=== PATIENT | male | born 1970 | race Two or more races ===

== ENCOUNTER 2020-06-29 09:15 | Outpatient (CLI) | payer OTHER | END 2020-06-29 09:20 | disposition home or self-care (01) | LOC: PPH VACUNA 09:15 | DX: Z23 Encounter for immunization (principal) ==

== ENCOUNTER 2021-02-14 08:00 | Outpatient (CLI) | payer OTHER | END 2021-02-14 11:21 | disposition home or self-care (01) | LOC: PPH VACUNA 08:00 | PROVIDERS: ATTEND Emergency Medicine Pediatric Emergency Medicine | DX: Z23 Encounter for immunization (principal) ==

== ENCOUNTER 2021-10-11 12:15 | Outpatient (CLI) | payer OTHER | END 2021-10-11 12:25 | disposition home or self-care (01) | LOC: PPH VACUNA 12:15 | PROVIDERS: ATTEND Emergency Medicine Pediatric Emergency Medicine | DX: Z23 Encounter for immunization (principal) ==